=== PATIENT | male | born 1940 | race Caucasian/White ===

== ENCOUNTER 2019-03-04 19:01 | Emergency (ER) | payer MEDICARE, OTHER ==
--- NOTE | 2019-03-04 19:22 | EDM.PDOC ---
ED HPI GENERAL MEDICAL PROBLEM - General Chief Complaint: Chest Pain Stated Complaint: CHEST PAIN Time Seen by Provider: 03/04/19 19:05 Source of Information: Reports: Patient History Limitations: Reports: No Limitations - History of Present Illness INITIAL COMMENTS - FREE TEXT/NARRATIVE: This is a 78-year-old male. Earlier this week maybe 6-7 days ago he started having sharp anterior chest pain in the right anterior chest. It seems to be intermittent. There is no pressure there is no shortness of breath there is no diaphoresis and it is sharp and fleeting. He has been doing some yard work recently and lifting about 40 pounds of leaves that he is been mowing and vacuuming up. Today when he was doing the leaves he felt some pain in his left shoulder and his left upper arm again there was no radiation to his jaw there was no shortness of breath or diaphoresis. He does have a history of left shoulder surgery back in September and was only in this early February that he likely had no symptoms from his left shoulder surgery. He is not very active and does not do a lot of physical labor. Presently he is without distress. While I was interviewing him he noted sharp right sided chest pain with deep breathing but was very fleeting. 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: Aspirin Right Chest Pain Score (Numeric/FACES): 0 - Related Data Allergies Allergy/AdvReac Type Severity Reaction Status Date / Time No Known Allergies Allergy Verified 08/22/13 14:46 Home Meds: Home Meds Felodipine [Felodipine ER] 5 mg PO DAILY 09/06/13 [History] Latanoprost [Xalatan] 2.5 ml .XX DAILY 09/06/13 [History] Levothyroxine [Synthroid] 50 mcg PO QAM 09/06/13 [History] Metoprolol Tartrate 25 mg PO BID 09/06/13 [History] hydroCHLOROthiazide [Hydrochlorothiazide] 12.5 mg PO DAILY 09/06/13 [History] Allopurinol [Zyloprim] 100 mg PO DAILY 03/04/19 [History] Fluticasone Furoate [Flonase Sensimist] 1 spray NASBOTH DAILY PRN 03/04/19 [ History] atorvaSTATin [Lipitor] 10 mg PO QPM 03/04/19 [History] metFORMIN [Glucophage XR] 500 mg PO BID 03/04/19 [History] Past Medical History - Past Surgical History Musculoskeletal Surgical History: Reports: Shoulder Surgery ED ROS GENERAL - Review of Systems Review Of Systems: See Below Constitutional: Reports: No Symptoms HEENT: Reports: No Symptoms Respiratory: Reports: No Symptoms Cardiovascular: Reports: Chest Pain. Denies: Dyspnea on Exertion, Edema Endocrine: Reports: No Symptoms GI/Abdominal: Denies: Abdominal Pain : Reports: No Symptoms Musculoskeletal: Reports: Shoulder Pain Skin: Reports: No Symptoms Neurological: Reports: No Symptoms Psychiatric: Reports: No Symptoms Hematologic/Lymphatic: Reports: No Symptoms ED EXAM, GENERAL - Physical Exam Exam: See Below Exam Limited By: No Limitations General Appearance: Alert, WD/WN, No Apparent Distress Eye Exam: Bilateral Eye: Normal Inspection Ears: Normal External Exam Nose: Normal Inspection Throat/Mouth: Normal Inspection, Normal Lips, Normal Voice, No Airway Compromise Head: Normocephalic Neck: Supple, Non-Tender, Full Range of Motion Respiratory/Chest: No Respiratory Distress, Lungs Clear, Normal Breath Sounds, Other (Palpation of the anterior chest reveals sharp pain in the mid right costochondral margin of the fourth and fifth and sixth ribs in the sternum, there is no tenderness on the left side there is no rib tenderness otherwise) Cardiovascular: Regular Rate, Rhythm, No Murmur GI/Abdominal: Normal Bowel Sounds, Soft, Non-Tender Back Exam: Full Range of Motion Extremities: Normal Inspection, Normal Range of Motion, No Pedal Edema Neurological: Alert, Oriented Psychiatric: Normal Affect, Normal Mood Skin Exam: Warm, Dry EKG INTERPRETATION EKG Date: 03/04/19 Time: 19:05 EKG Interpretation Comments: Normal sinus rhythm rate of 78, prolonged RI interval, no acute ST or T-wave changes, no ischemia noted. Course - Vital Signs Last Recorded V/S: Last Vital Signs Temp 97.4 F 03/04/19 19:07 Pulse 89 03/04/19 19:07 Resp 25 H 03/04/19 19:07 BP 153/86 H 03/04/19 19:07 Pulse Ox 98 03/04/19 19:07 - Orders/Labs/Meds Orders: Active Orders 24 hr Category Date Time Status Chest 2V [CR] Stat Exams 03/04/19 19:34 Taken Labs: Laboratory Tests 03/04/19 03/04/19 03/04/19 Range/Units 19:46 19:46 21:47 WBC 8.54 (4.23-9.07) K/mm3 RBC 4.50 L (4.63-6.08) M/mm3 Hgb 13.3 L (13.7-17.5) gm/dl Hct 40.3 (40.1-51.0) % MCV 89.6 (79.0-92.2) fl MCH 29.6 (25.7-32.2) pg MCHC 33.0 (32.2-35.5) g/dl RDW Std Deviation 43.1 (35.1-43.9) fL Plt Count 177 (163-337) K/mm3 MPV 10.8 (9.4-12.3) fl Neut % (Auto) 69.1 H (34.0-67.9) % Lymph % (Auto) 19.1 L (21.8-53.1) % Harris % (Auto) 10.1 (5.3-12.2) % Eos % (Auto) 1.3 (0.8-7.0) Baso % (Auto) 0.2 (0.1-1.2) % Neut # (Auto) 5.90 H (1.78-5.38) K/mm3 Lymph # (Auto) 1.63 (1.32-3.57) K/mm3 Harris # (Auto) 0.86 H (0.30-0.82) K/mm3 Eos # (Auto) 0.11 (0.04-0.54) K/mm3 Baso # (Auto) 0.02 (0.01-0.08) K/mm3 Sodium 141 (136-145) mEq/L Potassium 3.4 L (3.5-5.1) mEq/L Chloride 105 (98-107) mEq/L Carbon Dioxide 27 (21-32) mEq/L Anion Gap 12.4 (5-15) BUN 18 (7-18) mg/dL Creatinine 1.1 (0.7-1.3) mg/dL Est Cr Clr Drug Dosing 56.22 mL/min Estimated GFR (MDRD) > 60 (>60) mL/min BUN/Creatinine Ratio 16.4 (14-18) Glucose 133 H (83-115) mg/dL Calcium 8.8 (8.5-10.1) mg/dL Total Bilirubin 0.4 (0.2-1.0) mg/dL AST 17 (15-37) U/L ALT 26 (16-63) U/L Alkaline Phosphatase 110 (46-116) U/L Troponin I < 0.017 < 0.017 (0.00-0.056) ng/mL Total Protein 6.6 (6.4-8.2) g/dl Albumin 3.6 (3.4-5.0) g/dl Globulin 3.0 gm/dL Albumin/Globulin Ratio 1.2 (1-2) - Radiology Interpretation Free Text/Narrative:: Chest x-ray does not show any acute lung changes, cardiac silhouette appears to be normal, there is no hilar masses noted, other than thoracic spine degenerative changes nothing acute is seen. - Re-Assessments/Exams Free Text/Narrative Re-Assessment/Exam: 03/04/19 22:31 I spoke to the patient regarding the x-ray results and the lab work and the negative troponin 2. I believe that his chest pain is related to his chest wall with a mild costochondritis. I encouraged him to use heat to the chest take Tylenol or ibuprofen as needed for the soreness and to be careful about heavy lifting. He is to follow-up with his family doctor later this week. Departure - Departure Time of Disposition: 22:32 Disposition: Home, Self-Care 01 Condition: Good Clinical Impression: Acute costochondritis Instructions: Costochondritis, [id number] Referrals: Toribio Pelaez MD [Primary Care Provider] - Forms: ED Department Discharge Additional Instructions: Be very careful about heavy lifting until the sharp pain disappears, take Tylenol or ibuprofen as needed for the pain, heat to your chest like a heating pad will help with the soreness, if there is marked worsening of your symptoms return to the ER otherwise follow-up with your family doctor later this week - My Orders Last 24 Hours: My Active Orders 03/04/19 19:34 Chest 2V [CR] Stat - Assessment/Plan Last 24 Hours: My Active Orders 03/04/19 19:34 Chest 2V [CR] Stat
--- NOTE | 2019-03-05 12:52 | CR ---
Chest: PA and lateral views of the chest were obtained. Comparison: No previous chest x-ray. Heart size and mediastinum are normal. Lungs are clear. Degenerative spurring is noted within the spine. Impression: 1. Nothing acute is appreciated on two-view chest x-ray. Diagnostic code #2
== END 2019-03-04 22:45 | disposition home or self-care (01) ==
LOC: JD.ED 19:01
DX: M94.0 Chondrocostal junction syndrome [Tietze] (principal); Z79.899 Other long term (current) drug therapy
CPT/HCPCS: 36415; 71046; 71046-26; 80053; 84484; 85025; 93005; 99285-25

== ENCOUNTER 2020-01-31 09:57 | Day surgery (SDC) | payer MEDICARE, OTHER ==
[~2020-01-31 09:57] MED LIST: Cefuroxime 10 MG/ML SYRINGE EYERT SCH; Lidocaine 1% PF 2 ML SDV INJECT SCH; Pilocarpine 4% Ophth Soln 15 ML Bot EYERT SCH
[2020-01-31] MEDS: Polymyxin B/Trimethoprim 10 ML Bottle EYERT SCH ×3 (10:03→11:48)
[2020-01-31] MEDS: Brimonidine 0.2% Ophth Soln 5 ML Bottle EYERT SCH ×3 (10:08→11:48)
[2020-01-31] MEDS: Phenylephrine 2.5% Ophth Soln 2 ML Bot EYERT SCH ×5 (10:13→11:30)
[2020-01-31] MEDS: Tropicamide 1% Ophth Soln 15 ML Bottle EYERT SCH ×4 (10:18→11:01)
--- NOTE | 2020-01-31 10:30 | PCM.PREANE ---
Preanesthetic Assessment - Anesthesia/Transfusion/Family Hx Anesthesia History: Prior Anesthesia Without Reaction Family History of Anesthesia Reaction: No Transfusion History: No Prior Transfusion(s) - Review of Systems General: No Symptoms Pulmonary: No Symptoms Cardiovascular: Other (HTN) Gastrointestinal: No Symptoms Neurological: Numbness (feet) Other: Reports: Diabetes (takes oral agent, ), Thyroid Problems - Physical Assessment NPO Status Date: 01/30/20 NPO Status Time: 22:00 Vital Signs: Last Vital Signs Temp 36.2 C 01/31/20 09:55 Pulse 57 L 01/31/20 09:55 Resp 16 01/31/20 09:55 BP 115/63 01/31/20 09:55 Pulse Ox 96 01/31/20 09:55 Height: 1.78 m Weight: 95.254 kg ASA Class: 3 Mental Status: Alert & Oriented x3 Airway Class: Mallampati = 2 Dentition: Reports: Normal Dentition Thyro-Mental Finger Breadths: 3 Mouth Opening Finger Breadths: 3 ROM/Head Extension: Full Lungs: Clear to Auscultation, Normal Respiratory Effort Cardiovascular: Regular Rate, Regular Rhythm - Allergies Allergies/Adverse Reactions: Allergies Allergy/AdvReac Type Severity Reaction Status Date / Time No Known Allergies Allergy Verified 08/22/13 14:46 - Blood Blood Available: No Product(s) Available: None - Anesthesia Plan Pre-Op Medication Ordered: None Beta Amisha: Metoprolol Med Last Dose Date: 01/31/20 Med Last Dose Time: 07:00 - Acknowledgements Anesthesia Type Planned: MAC Pt an Appropriate Candidate for the Planned Anesthesia: Yes Alternatives and Risks of Anesthesia Discussed w Pt/Guardian: Yes Pt/Guardian Understands and Agrees with Anesthesia Plan: Yes PreAnesthesia Questionnaire - Past Surgical History Musculoskeletal Surgical History: Reports: Shoulder Surgery - HOME MEDS Home Medications: Home Meds Felodipine [Felodipine ER] 5 mg PO DAILY 09/06/13 [History] Latanoprost [Xalatan] 2.5 ml EYEBOTH DAILY 09/06/13 [History] Levothyroxine [Synthroid] 50 mcg PO QAM 09/06/13 [History] Metoprolol Tartrate 25 mg PO BID 09/06/13 [History] hydroCHLOROthiazide [Hydrochlorothiazide] 12.5 mg PO DAILY 09/06/13 [History] Fluticasone Furoate [Flonase Sensimist] 1 spray NASBOTH DAILY PRN 03/04/19 [History] allopurinoL [Zyloprim] 100 mg PO DAILY 03/04/19 [History] atorvaSTATin [Lipitor] 10 mg PO QPM 03/04/19 [History] metFORMIN [Glucophage XR] 500 mg PO BID 03/04/19 [History] Gabapentin [Neurontin] 300 mg PO BID 01/30/20 [History] timoloL maleate [Timoptic 0.5% Ophth Soln] 1 drop EYEBOTH QAM 01/30/20 [History] - CURRENT (IN HOUSE) MEDS Current Meds: Current Medications Brimonidine Tartrate (Alphagan 0.2% Ophth Soln) 0 ml EYERT ASDIRECTED LUCIANA Stop: 01/31/20 20:00 Last Admin: 01/31/20 10:08 Dose: 1 drop Documented by: Cefuroxime Sodium (Zinacef) 0 mg EYERT ASDIRECTED LUCIANA Stop: 01/31/20 20:00 Lidocaine HCl (Xylocaine-Mpf 1%) 0 ml INJECT ASDIRECTED LUCIANA Stop: 01/31/20 20:00 Phenylephrine HCl (Jhon-Synephrine 2.5% Ophth Soln) 0 ml EYERT ASDIRECTED LUCIANA Stop: 01/31/20 20:00 Last Admin: 01/31/20 10:23 Dose: 1 drop Documented by: Pilocarpine HCl (Pilocar 4% Ophth Soln) 0 ml EYERT ASDIRECTED LUCIANA Stop: 01/31/20 20:00 Polymyxin/Trimethoprim Sulfate (Polytrim Ophth Soln) 0 ml EYERT ASDIRECTED LUCIANA Stop: 01/31/20 20:00 Last Admin: 01/31/20 10:03 Dose: 1 drop Documented by: Tetracaine HCl (Tetracaine 0.5% Steri-Unit Shoshana) 0 ml EYEBOTH ASDIRECTED LUCIANA Stop: 01/31/20 20:00 Tropicamide (Mydriacyl 1% Ophth Soln) 0 ml EYERT ASDIRECTED LUCIANA Stop: 01/31/20 20:00 Last Admin: 01/31/20 10:27 Dose: 1 drop Documented by:
[2020-01-31] MEDS: Tetracaine HCl/PF 0.5% 4 ML Bottle EYEBOTH SCH ×2 (11:23→11:48)
--- NOTE | 2020-01-31 11:53 | PCM48HPAN ---
Post Anesthesia Note - EVALUATION WITHIN 48HRS OF ANESTHETIC Vital Signs in Normal Range: Yes Patient Participated in Evaluation: Yes Respiratory Function Stable: Yes Airway Patent: Yes Cardiovascular Function Stable: Yes Hydration Status Stable: Yes Pain Control Satisfactory: Yes Nausea and Vomiting Control Satisfactory: Yes Mental Status Recovered: Yes Vital Signs: Last Vital Signs Temp 36.2 C 01/31/20 09:55 Pulse 57 L 01/31/20 09:55 Resp 16 01/31/20 09:55 BP 115/63 01/31/20 09:55 Pulse Ox 96 01/31/20 09:55
== END 2020-01-31 12:03 | disposition home or self-care (01) ==
LOC: JD.SDS 09:57
PROVIDERS: ATTEND Ophthalmology
DX: E11.36 Type 2 diabetes mellitus with diabetic cataract (principal); H25.813 Combined forms of age-related cataract, bilateral; E78.00 Pure hypercholesterolemia, unspecified; I10 Essential (primary) hypertension; Z79.84 Long term (current) use of oral hypoglycemic drugs; Z79.899 Other long term (current) drug therapy
CPT/HCPCS: 66982; C1780

== ENCOUNTER 2020-10-03 06:59 | Day surgery (SDC) | payer MEDICARE, OTHER ==
--- NOTE | 2020-10-02 08:39 | PCM.SN.2 ---
- Free Text/Narrative Note: Left selective femoral nerve block at the adductor canal for post-procedure pain control under US guidance requested by Dr. Kline. Time Out: 1031 Start: 1031 End: 1037 Chart reviewed. Consent signed. Questions answered. Appropriate monitors applied. Time out performed. Left mid-shaft femur identified with ultrasound, scanning medially of femur, the femoral artery in the adductor canal visualized, and the femoral nerve located laterally to the artery. The skin was prepped lateral to the ultrasound probe with chlorahexadine times two. The 21ga 4 insulated block needle was inserted under direct ultrasound guidance into the adductor canal. 25mL of 0.5% ropivacaine with 1:200,000 epinephrine was injected circumferentially around the nerve with intermittent negative aspiration noted. Patient tolerated the procedure well. Sterile technique noted along with sterile gloves, mask, and sterile probe cover. See picture on progress note and vital signs on nurses notes. Block completed in PACU. Thank you, Юлия Doll CRNA
--- NOTE | 2020-10-02 12:52 | PCM.PREANE ---
Preanesthetic Assessment - Procedure Proposed Procedure: Left TKA and Right knee steroid injection - Anesthesia/Transfusion/Family Hx Anesthesia History: Prior Anesthesia Without Reaction Family History of Anesthesia Reaction: No Transfusion History: No Prior Transfusion(s) Intubation History: Unknown - Review of Systems General: No Symptoms (Covid vaccinated.) Pulmonary: No Symptoms (quit smoking in 1979.) Cardiovascular: No Symptoms (HTN, elevated cholesterol), Edema (slight pedal edema noted today; patient states not outside of his normal.), Lightheadedness (occasionally with positional changes) Gastrointestinal: No Symptoms Neurological: No Symptoms (paroxysmal positional vertigo-scopalamine patch placed behind right ear at 0745./gout/2010 back surgery:), Tingling (bilateral neuropathy of feet.) Other: Reports: Diabetes (NIDDM: am blood erexx=[id number]/on metformin), Thyroid Problems (hypothyroid ) - Physical Assessment NPO Status Date: 10/02/20 NPO Status Time: 20:00 Vital Signs: HR: 56 Sat: 95% Temp: 97.9 Resp: 12 B/P: 143/69 Height: 1.78 m Weight: 98 kg ASA Class: 3 Mental Status: Alert & Oriented x3 Airway Class: Mallampati = 2 Dentition: Reports: Dentures (upper), [place](s), Caries Thyro-Mental Finger Breadths: 3 Mouth Opening Finger Breadths: 3 ROM/Head Extension: Full Lungs: Clear to Auscultation, Normal Respiratory Effort Cardiovascular: Regular Rate, Regular Rhythm, No Murmurs - Lab Values: All labs reviewed and noted and within acceptable ranges to proceed with scheduled procedure. - Imaging/EKG Impressions: EKG: SR rate= 68, Prolonged TOSHIA, old inferior infarct CXR: negative - Allergies Allergies/Adverse Reactions: Allergies Allergy/AdvReac Type Severity Reaction Status Date / Time No Known Allergies Allergy Verified 10/02/20 12:00 - Anesthesia Plan Pre-Op Medication Ordered: Beta Amisha, Other (oral preoperative meds: (lyrica,tylenol, oxycodone @ 0745), scopalamine patch placed for history of vertigo.) Beta Amisha: Metoprolol Med Last Dose Date: 10/03/20 Med Last Dose Time: 06:00 - Acknowledgements Anesthesia Type Planned: Spinal (Left adductor canal block under us guidance for post operative pain control requested by Dr. Kline.) Pt an Appropriate Candidate for the Planned Anesthesia: Yes Alternatives and Risks of Anesthesia Discussed w Pt/Guardian: Yes Pt/Guardian Understands and Agrees with Anesthesia Plan: Yes PreAnesthesia Questionnaire HEENT History: Reports: Other (See Below) Other HEENT History: TYMPANIC MEMBRANE PERFORATION, EUSTACHIAN TUBE DYSFUCTION, HEARING LOSS, HEARING AIDS, DENTURES Cardiovascular History: Reports: High Cholesterol, Hypertension Respiratory History: Reports: None Gastrointestinal History: Reports: Hemorrhoids Genitourinary History: Reports: None ANALYTICS SENIOR MANAGER History: Reports: None Musculoskeletal History: Reports: Gout, Other (See Below) Other Musculoskeletal History: LEFT SHOULDER ROTATOR CUFF TEAR, COSTAL CHONDRITIS Neurological History: Reports: Vertigo Psychiatric History: Reports: None Endocrine/Metabolic History: Reports: Diabetes, Type II, Hypothyroidism Hematologic History: Reports: None Immunologic History: Reports: None Oncologic (Cancer) History: Reports: None Dermatologic History: Reports: None - Infectious Disease History Infectious Disease History: Reports: None - Past Surgical History Head Surgeries/Procedures: Reports: None HEENT Surgical History: Reports: None Cardiovascular Surgical History: Reports: None Respiratory Surgical History: Reports: None GI Surgical History: Reports: Appendectomy, Colonoscopy, Hernia, Inguinal Female Surgical History: Reports: None Male Surgical History: Reports: None Endocrine Surgical History: Reports: None Neurological Surgical History: Reports: Other (See Below) Other Neurological Surgeries/Procedures: BACK SURGERY Musculoskeletal Surgical History: Reports: Shoulder Surgery Oncologic Surgical History: Reports: None Dermatological Surgical History: Reports: None - SUBSTANCE USE Tobacco Use Status *Q: Former Tobacco User Recreational Drug Use History: No - HOME MEDS Home Medications: Home Meds Felodipine [Felodipine ER] 5 mg PO DAILY 09/06/13 [History] Latanoprost [Xalatan 0.005% Ophth Soln] 2.5 ml EYEBOTH DAILY 09/06/13 [History] Levothyroxine [Synthroid] 50 mcg PO QAM 09/06/13 [History] Metoprolol Tartrate 25 mg PO BID 09/06/13 [History] hydroCHLOROthiazide [Hydrochlorothiazide] 12.5 mg PO DAILY 09/06/13 [History] allopurinoL [Zyloprim] 100 mg PO DAILY 03/04/19 [History] atorvaSTATin [Lipitor] 10 mg PO QPM 03/04/19 [History] Gabapentin [Neurontin] 300 mg PO QAM 01/30/20 [History] timoloL maleate [Timoptic 0.5% Ophth Soln] 1 drop EYEBOTH QAM 01/30/20 [History] Cholecalciferol (Vitamin D3) [Vitamin D3] 5,000 unit PO DAILY 10/02/20 [History] Fluticasone Propionate [Flonase] 1 dose NASBOTH BID PRN 10/02/20 [History] Gabapentin [Neurontin] 600 mg PO 1200 10/02/20 [History] metFORMIN HCl [Metformin ER Osmotic] 1,000 mg PO BID 10/02/20 [History] Aspirin [Aspirin EC] 325 mg PO BID #84 tab 10/03/20 [Rx] oxyCODONE 5 - 10 mg PO Q4H PRN #40 tab 10/03/20 [Rx] - CURRENT (IN HOUSE) MEDS Current Meds: Current Medications Lactated Ringer's (Ringers, Lactated) 1,000 mls @ 125 mls/hr IV ASDIRECTED LUCIANA Stop: 10/03/20 23:00 Lidocaine/Sodium Bicarbonate (Lidocaine 1%/Sod Bicarbonate In Ns 8.4% 1 Ml Syringe) 0.25 ml IDERM ONETIME PRN PRN Reason: Prior to IV Start Stop: 10/03/20 18:00 Sodium Chloride (Sodium Chloride 0.9% 10 Ml Syringe) 10 ml FLUSH ASDIRECTED PRN PRN Reason: Keep Vein Open Stop: 10/03/20 18:00 Discontinued Medications Acetaminophen (Acetaminophen 325 Mg Tab) 975 mg PO ONETIME ONE Stop: 10/02/20 06:01 Oxycodone HCl (Oxycodone Er 10 Mg Tab.Er) 10 mg PO ONETIME ONE Stop: 10/02/20 06:01 Pregabalin (Pregabalin 25 Mg Cap) 50 mg PO ONETIME ONE Stop: 10/02/20 06:01
[~2020-10-03 06:59] MED LIST changes: +Acetaminophen 325 MG Tab PO ONE; -Cefuroxime 10 MG/ML SYRINGE EYERT SCH; +EPINEPHrine 1 MG/ML SDV ONE; +Lactated Ringers 1,000 ML IV SCH; -Lidocaine 1% PF 2 ML SDV INJECT SCH; +Lidocaine 1%/Sod Bicarbonate in NS 8.4% 1 ML Syringe IDERM PRN; -Pilocarpine 4% Ophth Soln 15 ML Bot EYERT SCH; +Pregabalin 25 MG Cap PO ONE; +Ropivacaine 0.5% 5 MG/ML 30 ML SDV ONE; +Scopolamine 1.5 MG Transdermal Patch TRDERM PRN; +Sodium Chloride 0.9% 10 ML Syringe FLUSH PRN; +oxyCODONE ER 10 MG TAB.ER PO ONE
[2020-10-03] MEDS ORDERED: Lactated Ringers 1,000 ML ONE (07:25)
[2020-10-03] MEDS ORDERED: Propofol 200 MG/20 ML SDV ONE (07:25)
[2020-10-03] MEDS ORDERED: Ondansetron 4 MG/2 ML SDV ONE (07:25)
[2020-10-03] MEDS ORDERED: Lidocaine 1% 4 ML ONE (07:25)
[2020-10-03] MEDS ORDERED: Ketamine 500 mg/10 ML MDV ONE (07:26)
[2020-10-03] MEDS ORDERED: fentaNYL 100 MCG/2 ML SDV ONE (07:26)
[2020-10-03] MEDS ORDERED: Midazolam 1 MG/ML 2 ML SDV ONE (08:00)
[2020-10-03] MEDS ORDERED: oxyCODONE ER 10 MG TAB.ER PO ONE (08:00)
[2020-10-03] MEDS ORDERED: Pregabalin 25 MG Cap PO ONE (08:00)
[2020-10-03] MEDS ORDERED: Acetaminophen 325 MG Tab PO ONE (08:00)
[2020-10-03] MEDS ORDERED: diphenhydrAMINE 50 MG/ML SDV IVPUSH PRN (08:46)
[2020-10-03] MEDS ORDERED: HYDROmorphone 0.5 MG/0.5 ML Syringe IVPUSH PRN (08:46)
[2020-10-03] MEDS ORDERED: fentaNYL 100 MCG/2 ML SDV IVPUSH PRN (08:46)
[2020-10-03] MEDS ORDERED: ePHEDrine 50 MG/ML SDV IVPUSH PRN (08:46)
[2020-10-03] MEDS ORDERED: Ondansetron 4 MG/2 ML SDV IVPUSH PRN (08:46)
[2020-10-03] MEDS ORDERED: ePHEDrine 50 MG/ML SDV ONE (09:07)
[2020-10-03] MEDS: Vancomycin 1 GM SDV ONE ×2 (09:09→09:51)
[2020-10-03] MEDS: Morphine 8 MG, EPINEPHrine 0.3 MG, Cefuroxime 750 MG, Ketorolac 30 MG, Sodium Chloride ... PRN ×10 (09:09→09:43)
[2020-10-03] MEDS: Bupivacaine 0.25% 10 ML SDV ONE ×2 (09:10→10:00)
[2020-10-03] MEDS: Triamcinolone Acetonide 40 MG/ML 1 ML SDV ONE ×2 (09:11→10:00)
--- NOTE | 2020-10-03 10:24 | PCM.POSTAN ---
POST ANESTHESIA ASSESSMENT - MENTAL STATUS Mental Status: Alert - VITAL SIGNS Vital Signs: Last Vital Signs Temp 158/73 10/03/20 1014 Pulse 49 10/03/20 1014 Resp 14 10/03/20 1014 BP 158/73 10/03/20 1014 Pulse Ox 97% 10/03/20 1014 - RESPIRATORY Respiratory Status: Respiratory Rate WNL, Airway Patent, O2 Saturation Stable, Supplemental Oxygen - CARDIOVASCULAR CV Status: Pulse Rate WNL, Blood Pressure Stable - GASTROINTESTINAL GI Status: No Symptoms - POST OP HYDRATION Hydration Status: Adequate & Stable
[2020-10-03] MEDS ORDERED: oxyCODONE 5 MG Tab PO PRN (10:44)
--- NOTE | 2020-10-03 11:23 | CR ---
Left knee: AP and crosstable lateral views of the left knee were obtained. Comparison: Prior left knee CT study of 09/19/20. Knee prosthesis is seen. Components are aligned. Patellar prosthesis is seen. Soft tissue air is seen. No acute osseous abnormality is otherwise seen. Impression: 1. Satisfactory postop radiographic appearance of recently placed left knee prosthesis. Diagnostic code #1
--- NOTE | 2020-10-03 12:25 | PCM48HPAN ---
Post Anesthesia Note - EVALUATION WITHIN 48HRS OF ANESTHETIC Vital Signs in Normal Range: Yes Patient Participated in Evaluation: Yes Respiratory Function Stable: Yes Airway Patent: Yes Cardiovascular Function Stable: Yes Hydration Status Stable: Yes Pain Control Satisfactory: Yes Nausea and Vomiting Control Satisfactory: Yes Mental Status Recovered: Yes Vital Signs: Last Vital Signs Temp 36.3 C 10/03/20 11:15 Pulse 57 L 10/03/20 11:20 Resp 16 10/03/20 11:20 BP 152/84 H 10/03/20 11:20 Pulse Ox 95 10/03/20 11:20 - COMMENTS/OBSERVATIONS Free Text/Narrative:: No anesthesia complications noted
--- NOTE | 2020-10-03 13:40 | PCM48HPAN ---
Post Anesthesia Note - EVALUATION WITHIN 48HRS OF ANESTHETIC Vital Signs in Normal Range: Yes Patient Participated in Evaluation: Yes Respiratory Function Stable: Yes Airway Patent: Yes Cardiovascular Function Stable: Yes Hydration Status Stable: Yes Pain Control Satisfactory: Yes Nausea and Vomiting Control Satisfactory: Yes Mental Status Recovered: Yes Vital Signs: Last Vital Signs Temp 36.3 C 10/03/20 11:15 Pulse 57 L 10/03/20 11:20 Resp 16 10/03/20 11:20 BP 152/84 H 10/03/20 11:20 Pulse Ox 95 10/03/20 11:20
--- NOTE | 2020-10-12 07:34 | PCM.OPNOTE ---
- General Post-Op/Procedure Note Date of Surgery/Procedure: 10/03/20 Operative Procedure(s): left total knee arthroplasty with right knee corticosteroid injection Pre Op Diagnosis: bilateral knee osteoarthrosis Post-Op Diagnosis: Same Anesthesia Technique: Local, MAC, Spinal Primary Surgeon: Denys Kline Anesthesia Provider: Юлия Doll Bag Machine Operator: Krystin Collins Bag Machine Operator: Sheryl Angel EBL in mLs: 5 Complications: None Condition: Good Free Text/Narrative:: 10/14 9mm 35x10
--- NOTE | 2020-10-12 09:31 | OR ---
DATE OF OPERATION: 10/03/2020 SURGEON: Denys Kline MD OPERATION PERFORMED: Left total knee arthroplasty with right knee corticosteroid injection. PREOPERATIVE DIAGNOSIS: Bilateral knee osteoarthrosis. POSTOPERATIVE DIAGNOSIS: Bilateral knee osteoarthrosis. ANESTHESIA: Local MAC with spinal. ANESTHESIA PROVIDER: Юлия Doll CRNA ASSISTANTS: Krystin Collins PA-C and Sheryl Angel LPN. ESTIMATED BLOOD LOSS: 5 mL. COMPLICATIONS: None. CONDITION: Stable. IMPLANTS: 1. Omar size 6 cemented PS femur. 2. Omar size 6 cemented Franklin tibial baseplate. 3. Omar size 6, 9 mm PS X3 polyethylene. 4. Omar size 35 x 10 mm cemented asymmetric patella. DESCRIPTION OF PROCEDURE: The patient was identified in the preop holding area. Proper site was marked and identified by the surgeon. The patient was taken back to the operating theater where after adequate anesthesia, the patient's leg had a nonsterile tourniquet applied and it was sterilely prepped and draped in the usual sterile fashion. OR time-out was performed. The patient received 2 g IV Ancef . Leg rosario was then applied to the left lower extremity. At this time, the left lower extremity was exsanguinated. Tourniquet was insufflated to 250 mmHg. Standard anterior incision was made. Medial parapatellar arthrotomy was created. Deep fibers of the MCL were raised as well as anterior fat pad was resected. Attention was turned to the patella. Patella measured 24 mm; it was resected to 14 mm for a [id number] patella. Drill holes were then drilled. Attention was then turned to the femur. Two 4.0 pins were placed intra-incisionally for the Lockhart Rogers robotic array and then 2 more were placed on the tibia 3 fingerbreadths below the tibial tubercle. The Omar Rogers robotic arrays were placed on both the femur and the tibia then at this time as well as checkpoints on the femur and tibia. Hip center rotation was then obtained. The medial and lateral malleoli were marked. At this time, 40 points were obtained off the femur and the tibia for the Lockhart Rogers robotic plan. The patient's knee was brought to full extension. Varus and valgus stresses were applied and then into 90 degrees of flexion with a curved osteotome. Varus and valgus stresses were applied. At this time, The Bully Tracker robotic plan was done to 19 mm gaps in both flexion and extension. Omar Mako robotic arm was then brought in. A straight saw blade was then used for the tibial cut, the anterior femoral cut, the anterior chamfer cut, and the posterior femoral cut. All bony fragments were removed. Saw blade was then switched out and the distal femoral cut as well as the posterior chamfer cut was completed. At this time, medial and lateral menisci were resected as well as any posterior osteophytes. A 6 trial tibia was then placed, 6 trial femur was placed, and a 9 polyethylene trial liner was placed. The patient's knee was brought to full extension and flexion. Varus and valgus stresses were applied, was found to be stable with no instability. No signs of liftoff or loosening were noted. At this time, box cut was completed on the femur. The pins were removed from the femur and the tibia as well as the arrays and the checkpoints. Cement was mixed on the back table. All cut surfaces were irrigated with pulse lavage irrigation with Ancef and then completely dried. Once the cement was ready, the Omar size 6 cemented Franklin tibial base plate having been previously stamped and drilled, was then cemented in place on the tibia. The Omar size 6 cemented PS femur was cemented into place. The patient had a Omar size 6, 9 mm PS X3 polyethylene insert placed. The patient's knee was brought to full extension. Excess cement was removed. A Lockhart size 35 x 10 mm cemented asymmetric patella was then cemented into place. 1 L of pulse lavage irrigation with Ancef was irrigated through the knee along with 400 mL of IrriSept irrigation. Periarticular injection was completed. Topical tranexamic acid and vancomycin powder were applied. A #2 barbed suture was used for closure of the medial parapatellar arthrotomy in flexion. 2-0 Vicryl and Stratafix were used for subcutaneous closure. Prineo was used for cutaneous closure. The patient had a sterile soft dressing applied. The tibial holes were closed with nylon, and this was also covered with a sterile soft dressing. The patient had an KALEIGH wrap applied and was sent to PACU in stable condition. The patient tolerated the procedure well. After this was completed and under sterile technique, 2 mL of 40 mg Kenalog and 4 mL of 0.25% Marcaine were injected to the right knee, and the patient tolerated all procedures well. ARTURO /[id number] MTDD
== END 2020-10-03 12:51 | disposition home or self-care (01) ==
LOC: JD.SDS 06:59
PROVIDERS: ATTEND Orthopaedic Surgery
DX: M17.0 Bilateral primary osteoarthritis of knee (principal); G89.29 Other chronic pain; M25.762 Osteophyte, left knee; E78.00 Pure hypercholesterolemia, unspecified; I10 Essential (primary) hypertension; E11.9 Type 2 diabetes mellitus without complications; E03.9 Hypothyroidism, unspecified; M10.9 Gout, unspecified; Z87.891 Personal history of nicotine dependence; Z79.82 Long term (current) use of aspirin; Z79.890 Hormone replacement therapy; Z79.899 Other long term (current) drug therapy; G89.18 Other acute postprocedural pain
CPT/HCPCS: 01402; 64450; 73560-26-LT; 73560-LT; 76942; 97110-GP; 97116-GP; 97161-GP; 99100; A9270-GY; C1713; C1776; J0171; J0697; J1885; J2250; J2270; J2370; J2405; J2704; J2795; J3010; J3301; J3370; J3490; J7120

== ENCOUNTER 2022-09-25 08:17 | Day surgery (SDC) | payer MEDICARE, OTHER ==
[~2022-09-25 08:17] MED LIST changes: -Acetaminophen 325 MG Tab PO ONE; +Brimonidine 0.2% Ophth Soln 5 ML Bottle EYELF SCH; +Cefuroxime 10 MG/ML SYRINGE EYELF SCH; -EPINEPHrine 1 MG/ML SDV ONE; -Lactated Ringers 1,000 ML IV SCH; +Lidocaine 1% PF 2 ML SDV INJECT SCH; -Lidocaine 1%/Sod Bicarbonate in NS 8.4% 1 ML Syringe IDERM PRN; +Phenylephrine 2.5% Ophth Soln 2 ML Bot EYELF SCH; +Pilocarpine 4% Ophth Soln 15 ML Bot EYELF SCH; +Polymyxin B/Trimethoprim 10 ML Bottle EYELF SCH; -Pregabalin 25 MG Cap PO ONE; -Ropivacaine 0.5% 5 MG/ML 30 ML SDV ONE; -Scopolamine 1.5 MG Transdermal Patch TRDERM PRN; -Sodium Chloride 0.9% 10 ML Syringe FLUSH PRN; +Tetracaine HCl/PF 0.5% 4 ML Bottle EYEBOTH SCH; +Tropicamide 1% Ophth Soln 15 ML Bottle EYELF SCH; -oxyCODONE ER 10 MG TAB.ER PO ONE
[2022-09-25] MEDS: Polymyxin B/Trimethoprim 10 ML Bottle EYELF SCH ×4 (08:53→10:44)
[2022-09-25] MEDS: Brimonidine 0.2% Ophth Soln 5 ML Bottle EYERT SCH ×3 (08:57→09:34)
[2022-09-25] MEDS: Phenylephrine 2.5% Ophth Soln 2 ML Bot EYERT SCH ×4 (09:02→09:40)
[2022-09-25] MEDS: Tropicamide 1% Ophth Soln 15 ML Bottle EYERT SCH ×4 (09:07→09:44)
[2022-09-25] MEDS ORDERED: Ondansetron 4 MG/2 ML SDV IVPUSH PRN (09:39)
[2022-09-25] MEDS: Tetracaine HCl/PF 0.5% 4 ML Bottle EYEBOTH SCH ×5 (09:53→10:29)
[2022-09-25] MEDS: Phenylephrine 2.5% Ophth Soln 2 ML Bot EYELF SCH ×2 (10:03→10:20)
[2022-09-25] MEDS: Lidocaine 1% PF 2 ML SDV INJECT SCH ×2 (10:05→10:30)
[2022-09-25] MEDS: Cefuroxime 10 MG/ML SYRINGE EYELF SCH ×2 (10:05→10:43)
[2022-09-25] MEDS: Pilocarpine 4% Ophth Soln 15 ML Bot EYELF SCH ×2 (10:06→10:44)
[2022-09-25] MEDS: Brimonidine 0.2% Ophth Soln 5 ML Bottle EYELF SCH ×2 (10:06→10:44)
== END 2022-09-25 11:00 | disposition home or self-care (01) ==
LOC: JD.SDS 08:17
PROVIDERS: ATTEND Ophthalmology
DX: E11.36 Type 2 diabetes mellitus with diabetic cataract (principal); H25.812 Combined forms of age-related cataract, left eye; H26.491 Other secondary cataract, right eye; E03.9 Hypothyroidism, unspecified; H21.81 Floppy iris syndrome; H40.1132 Primary open-angle glaucoma, bilateral, moderate stage; E78.00 Pure hypercholesterolemia, unspecified; M10.9 Gout, unspecified; I10 Essential (primary) hypertension; E07.9 Disorder of thyroid, unspecified; Z96.1 Presence of intraocular lens; Z90.49 Acquired absence of other specified parts of digestive tract; Z79.899 Other long term (current) drug therapy; Z79.84 Long term (current) use of oral hypoglycemic drugs
CPT/HCPCS: 66982; A9270; J0697; V2788; 00142; 99100; J3490

== ENCOUNTER 2023-02-02 05:45 | Day surgery (SDC) | payer MEDICARE, OTHER ==
[2023-02-02] MEDS ORDERED: Acetaminophen 325 MG Tab PO SCH (06:00)
[2023-02-02] MEDS ORDERED: Sodium Chloride 0.9% 10 ML Syringe FLUSH PRN (06:00)
[2023-02-02] MEDS ORDERED: oxyCODONE ER 10 MG TAB.ER PO SCH (06:00)
[2023-02-02] MEDS ORDERED: Pregabalin 25 MG Cap PO SCH (06:00)
[2023-02-02] MEDS: Lactated Ringers 1,000 ML IV SCH ×2 (06:15→10:20)
[2023-02-02] MEDS ORDERED: Ondansetron 4 MG/2 ML SDV IVPUSH PRN (07:09)
[2023-02-02] MEDS ORDERED: fentaNYL 100 MCG/2 ML SDV IVPUSH PRN (07:09)
[2023-02-02] MEDS ORDERED: HYDROmorphone 0.5 MG/0.5 ML Syringe IVPUSH PRN (07:09)
[2023-02-02] MEDS ORDERED: Propofol 200 MG/20 ML SDV ONE (07:13)
[2023-02-02] MEDS ORDERED: fentaNYL 100 MCG/2 ML SDV ONE (07:13)
[2023-02-02] MEDS ORDERED: Lidocaine 2% 100 MG/5 ML Syringe ONE (07:13)
[2023-02-02] MEDS: Tranexamic Acid 1,000 MG/10 ML Vial ONE ×2 (08:06→08:42)
[2023-02-02] MEDS: Morphine 8 MG, EPINEPHrine 0.3 MG, Cefuroxime 750 MG, Ketorolac 30 MG, Sodium Chloride ... PRN ×10 (08:06→08:36)
[2023-02-02] MEDS: Vancomycin 1 GM SDV ONE ×2 (08:06→08:42)
[2023-02-02] MEDS ORDERED: Ropivacaine 0.5% 5 MG/ML 30 ML SDV ONE (09:10)
[2023-02-02] MEDS ORDERED: oxyCODONE 5 MG Tab PO SCH ×2 (09:39→10:43)
[2023-02-02] MEDS ORDERED: ceFAZolin 2 GM Vial ONE (12:26)
== END 2023-02-02 11:07 | disposition home or self-care (01) ==
LOC: JD.SDS 05:45
PROVIDERS: ATTEND Orthopaedic Surgery
DX: M17.11 Unilateral primary osteoarthritis, right knee (principal); I10 Essential (primary) hypertension; E11.9 Type 2 diabetes mellitus without complications; M10.9 Gout, unspecified; E03.9 Hypothyroidism, unspecified; E78.5 Hyperlipidemia, unspecified; Z90.49 Acquired absence of other specified parts of digestive tract; Z87.891 Personal history of nicotine dependence; Z79.890 Hormone replacement therapy; Z79.84 Long term (current) use of oral hypoglycemic drugs; Z79.899 Other long term (current) drug therapy
CPT/HCPCS: 01402; 73560-26-RT; 73560-RT; 82947; 97110-GP; 97116-GP; 97161-GP; 99100; A9270-GY; C1713; C1776; J0171; J0690; J0697; J1885; J2270; J2405; J2704; J2795; J3010; J3370; J3490; J7030; J7120